=== PATIENT | male | born 1930 | race Caucasian/White ===

== ENCOUNTER 2019-10-06 16:30 | Emergency (ER) | payer OTHER, MEDICARE ==
[2019-10-06 16:55] VITALS: BP 132/58; PULSE 60; TEMP 98.1; BMI 21.2
[2019-10-06] MEDS ORDERED: DIPHTH,PERTUSS(ACELL),TET 0.5 ML DISP.SYRIN IM ONE ×2 (17:18→17:19)
--- NOTE | 2019-10-06 17:34 | PDOC ---
Documentation entered by Juliane Jon SCRIBE, acting as scribe for Tushar Lincoln MD. Tushar Lincoln MD: This documentation has been prepared by the candaceibeMarii Maria, SCRIBE, under my direction and personally reviewed by me in its entirety. I confirm that the documentation accurately reflects all work, treatment, procedures, and medical decision making performed by me. History of Present Illness - General Chief Complaint: Wound Stated Complaint: WOUND - History of Present Illness Initial Comments: 10/06/19 17:17 The patient is an 89 year old male with a significant past medical history of hypotension who presents to the emergency department with a wound to his left arm. As per patient, he reports tripping going up the stairs, 2 days ago and landed on his left arm. Denies LOC. As per patients she reports he falls constantly secondary due to his hypotension. She also reports applying bacitracin to the wound with no significant relief prompting him to the ER. Denies any head trauma. Denies any other injuries. Past History - Past Medical History Allergies/Adverse Reactions: Allergies Allergy/AdvReac Type Severity Reaction Status Date / Time No Known Allergies Allergy Verified 10/06/19 16:44 Home Medications: Ambulatory Orders Cholecalciferol (Vitamin D3) 10/06/19 Escitalopram Oxalate [Lexapro -] 20 mg PO DAILY 10/06/19 Midodrine HCl 2.5 mg PO HS 10/06/19 Midodrine HCl 5 mg PO DAILY 10/06/19 Vitamin B-12 10/06/19 Review of Systems - Review of Systems Able to Perform ROS?: Yes Comments:: 10/06/19 17:17 CONSTITUTIONAL: Absent: Fever, Chills, Diaphoresis, Generalized Weakness, Malaise, Loss of Appetite HEENT: Absent: Rhinorrhea, Nasal Congestion, Throat Pain, Throat Swelling, Difficulty Swallowing, Mouth Swelling, Ear Pain, Eye Pain, Visual Changes CARDIOVASCULAR: Absent: Chest Pain, Syncope, Palpitations, Irregular Heart Rate, Lightheadedness, Peripheral Edema RESPIRATORY: Absent: Cough, Shortness of Breath, SOB with Exertion, Orthopnea, Wheezing, Stridor, Hemoptysis GASTROINTESTINAL: Absent: Abdominal pain, Abdominal Distension, Nausea, Vomiting, Diarrhea, Constipation, Melena, Hematochezia GENITOURINARY: Absent: Dysuria, Frequency, Urgency, Hesitancy, Flank Pain, Genital Pain MUSCULOSKELETAL: Absent: Myalgia, Arthralgia, Joint Swelling, Back pain, Neck Pain SKIN:+skin tear on left arm. Absent: Rash, Itching, Pallor HEMEATOLOGIC/IMMUNOLOGIC: Absent: Easy Bleeding, Easy Bruising, Lymphadenopathy, Frequent infections ENDOCRINE: Absent: Unexplained Weight Gain, Unexplained Weight Loss, Heat Intolerance, Cold Intolerance NEUROLOGIC: Absent: Headache, Focal Weakness, Paresthesias, Vertigo, Lightheadedness, Unsteady Gait, Seizure, Mental Status Changes, Incontinence PSYCHIATRIC: Absent: Anxiety, Depression *Physical Exam - Physical Exam 10/06/19 17:32 GENERAL: The patient is awake, alert, and fully oriented, in no acute distress. Elderly gentleman, calm and cooperative. HEAD: Normal with no signs of trauma. Patient denies hitting his head when he fell. EYES: Pupils equal, round and reactive to light, extraocular movements intact, sclera anicteric, conjunctiva clear. EXTREMITIES: The left forearm over the dorsal aspect has a 4 x 5 cm area of skin tear. The skin is covering half of the wound. There is no sign of infection. There is no erythema and no discharge. The open area is pink and granulating with trace of bleeding, not significant. Wound care performed. NEUROLOGICAL: Normal speech, normal gait, however slow. PSYCH: Normal mood, normal affect. SKIN: Warm, Dry, normal turgor, no rashes or lesions noted other than the left forearm laceration noted above. Medical Decision Making - Medical Decision Making 10/06/19 17:11 89-year-old man with a history of orthostatic hypotension maintained on midodrine. He has frequent falls secondary to low blood pressure. He tripped and fell 2 days ago and got a skin tear on his left forearm, approximately 4 x 5 cm. He comes in now because the skin is not covering the entire wound. On examination, there is a superficial skin tear with the skin flap covering half of the wound. There are no signs of infection. There is pink granulating tissue with no erythema and no discharge. There is trace of bleeding, not significant. Impression: Skin tear Plan: Wound cleansed with saline irrigation. Bacitracin ointment applied and dry clean sterile dressing applied. Patient advised to follow-up at the wound care clinic at [facility] in [place]. He states he will follow-up with their this week. Discharge - Discharge Information Problems reviewed: Yes Clinical Impression/Diagnosis: Forearm laceration Qualifiers: Encounter type: initial encounter Laterality: left Qualified Code(s): S51.812A - Laceration without foreign body of left forearm, initial encounter Condition: Stable Disposition: HOME - Admission No - Follow up/Referral Referrals: Jaxon Kerns DO [Primary Care Provider] - - Patient Discharge Instructions Additional Instructions: Today you were evaluated for an open wound on the forearm. You are advised to care for the wound daily. 1) remove the dressing 2) wash the wound with soap and water gently under running water 3) rinse the wound with water from the tap 4) apply a thin layer of bacitracin to the open area with a Q-tip 5) apply a clean gauze dressing and then wrapped the wound 6) you should do this daily to clean the area and reapply bacitracin and a dressing 7) you should follow-up in 2 or 3 days at the wound clinic at [facility] on [facility] in [place] 8) call the wound clinic on Monday morning after 9 AM to schedule your appointment this week, ask to see Dr. Galvez on Monday Wound clinic [phone] If there are any signs of infection such as fever, swelling, redness, or drainage of pus, return to the emergency department immediately. - Post Discharge Activity
== END 2019-10-06 17:29 | disposition home or self-care (01) ==
LOC: FER 16:30
PROC: 3E0234Z Introduction of Serum, Toxoid and Vaccine into Muscle, Percutaneous Approach (ICD-10-PCS; principal; 2019-10-06)
DX: S51.812A Laceration without foreign body of left forearm, initial encounter (principal); I95.1 Orthostatic hypotension
CPT/HCPCS: 90715; 99282-25

== ENCOUNTER 2021-02-20 21:18 | Inpatient (IN) | payer OTHER, MEDICARE ==
[2021-02-20] MEDS ORDERED: AMOX TR/POT CLAV 875MG/125MG TABLETS (FP) PO ONE (23:42)
[2021-02-20] MEDS ORDERED: AMOX TR/POT CLAV 875MG/125MG TABLETS (FP) ONE (23:46)
[2021-02-21] MEDS ORDERED: FOLIC ACID INJECTION - 1 MG, THIAMINE HCL 100 MG, MULTIVIT INJECTION ADULT 10 ML in SOD... IVPB ONE (01:56)
[2021-02-21] MEDS ORDERED: THIAMINE HCL 200 MG/2 ML VIAL ONE (02:02)
[2021-02-21] MEDS ORDERED: MULTIVIT INJ. ADULT COMBO WITH VIT K 1 COMBO 10 ML VIAL IV ONE (02:04)
[2021-02-21] MEDS ORDERED: LIDOCAINE HCL 2% JELLY 10 ML CARTRIDGE UR ONE (02:52)
[2021-02-21] MEDS ORDERED: ACETAMINOPHEN 1000 MG/100 ML VIAL (NON FORMULARY) IVPB ONE (03:02)
[2021-02-21] MEDS ORDERED: LIDOCAINE HCL 2% JELLY (5 ML/TUBE) ONE (03:02)
[2021-02-21 03:11] LABS: BASO % 0.6 % (0-2.0); EOS % 0.8 % (0-4.5); HEMATOCRIT 35.8 % (35.4-49); LYMPH % 9.1 % (8-40); MCH 29.1 pg (25.7-33.7); MCHC 33.5 g/dl (32.0-35.9); MEAN CELL VOLUME 86.9 fl (80-96); MEAN PLT VOLUME 9.6 fl (7.5-11.1); MONO % 6.1 % (3.8-10.2); NEUT % 83.4 % (42.8-82.8); PLATELET COUNT 140 10^3/uL (134-434); RBC 4.12 M/mm3 (4.00-5.60); RDW 13.1 % (11.9-15.9); WHITE BLOOD COUNT 8.5 K/mm3 (4.0-10.0)
[2021-02-21] MEDS ORDERED: ACETAMINOPHEN INJECTION 100 ML IVPB ONE (03:19)
[2021-02-21 03:40] LABS: CALCIUM 8.5 mg/dL (8.5-10.1)
[2021-02-21 03:41] LABS: ALBUMIN 3.7 g/dl (3.4-5.0); BLOOD UREA NITROGEN 29.8 mg/dL (7-18); MAGNESIUM 2.3 mg/dL (1.8-2.4)
[2021-02-21 03:44] LABS: CREATININE 1.3 mg/dL (0.55-1.3); PHOSPHOROUS 2.9 mg/dL (2.5-4.9)
[2021-02-21 03:46] LABS: BILIRUBIN,TOTAL 0.9 mg/dL (0.2-1); TOT PROT 7.1 g/dl (6.4-8.2)
[2021-02-21 08:51] LABS: EPITHELIAL CELLS RARE /hpf; TRIPLE PHOSPHATE CRYSTAL MODERATE /hpf (NONE SEEN)
[2021-02-21 09:33] LABS: INR 1.1 (0.82-1.09); PROTHROMBIN TIME (PATIENT) 12.2 SEC (10.2-13.0)
[2021-02-21] MEDS ORDERED: AMOX TR/POT CLAV 875MG/125MG TABLETS (FP) PO SCH (10:00)
[2021-02-21] MEDS ORDERED: ACETAMINOPHEN 325 MG TABLET (FP) PO PRN (11:20)
[2021-02-21] MEDS: SODIUM CHLORIDE 1,000 ML IV SCH (11:30)
[2021-02-21] MEDS ORDERED: cefTRIAXone SODIUM 1 GM VIAL ONE (11:48)
[2021-02-21] MEDS ORDERED: DEXTROSE 5%-WATER - 50 ML IVPB ONE (11:49)
[2021-02-21] MEDS: ESCITALOPRAM OXALATE 20 MG TABLET PO SCH (11:55)
[2021-02-21] MEDS: MIDODRINE HCL 2.5 MG TABLET PO SCH (11:55)
[2021-02-21] MEDS: CEFTRIAXONE 1 GM in DEXTROSE 5%-WATER - 50 ML IVPB SCH (11:56)
[2021-02-21 12:15] VITALS: BMI 20.9
[2021-02-21] MEDS ORDERED: MIDODRINE HCL 2.5 MG TABLET PO SCH (18:00)
[2021-02-22 08:18] LABS: BASO % 0.7 % (0-2.0); CREATININE 1.1 mg/dl (0.55-1.3); EOS % 1.7 % (0-4.5); HEMATOCRIT 31.4 % (35.4-49); HEMOGLOBIN 10.8 GM/dl (11.7-16.9); LYMPH % 11.8 % (8-40); MCH 30.2 pg (25.7-33.7); MCHC 34.6 g/dl (32.0-35.9); MEAN CELL VOLUME 87.2 fl (80-96); MEAN PLT VOLUME 9.5 fl (7.5-11.1); MONO % 6.6 % (3.8-10.2); NEUT % 79.2 % (42.8-82.8); PLATELET COUNT 118 10^3/uL (134-434); RDW 12.3 % (11.9-15.9); WHITE BLOOD COUNT 6.9 K/mm3 (4.0-10.8)
[2021-02-22] MEDS ORDERED: cefTRIAXone SODIUM 1 GM VIAL ONE (09:35)
[2021-02-22] MEDS ORDERED: DEXTROSE 5%-WATER - 50 ML IVPB ONE (09:36)
[2021-02-22] MEDS: CEFTRIAXONE 1 GM in DEXTROSE 5%-WATER - 50 ML IVPB SCH (09:38)
[2021-02-22] MEDS: ESCITALOPRAM OXALATE 20 MG TABLET PO SCH (09:38)
[2021-02-22] MEDS: MIDODRINE HCL 2.5 MG TABLET PO SCH ×2 (09:39→17:25)
[2021-02-22 15:02] LABS: ALBUMIN 3.8 g/dl (3.4-5.0); ALK PHOS 49 U/L (45-117); ANION GAP 12 MMOL/L (8-16); BILIRUBIN,TOTAL 1.3 mg/dl (0.2-1); CALCIUM 8.3 mg/dl (8.5-10); CHLORIDE 102 mmol/L (98-107); CO2 24 mmol/L (21-32); CREATININE 1.1 mg/dl (0.55-1.3); GLUCOSE,RANDOM 93 mg/dl (74-106); SGOT/AST 21 U/L (15-37); SGPT/ALT 13 U/L (13-61); SODIUM 138 mmol/L (136-145); TOT PROT 6.8 g/dl (6.4-8.2)
[2021-02-22] MEDS: SODIUM CHLORIDE 1,000 ML IV SCH (16:29)
[2021-02-22] MEDS: HEPARIN NA (PORCINE) 5,000 UNITS/ML 1ML VIAL SQ SCH (21:11)
[2021-02-23] MEDS: HEPARIN NA (PORCINE) 5,000 UNITS/ML 1ML VIAL SQ SCH ×3 (06:11→21:12)
[2021-02-23] MEDS: ESCITALOPRAM OXALATE 20 MG TABLET PO SCH (10:20)
[2021-02-23] MEDS: MIDODRINE HCL 2.5 MG TABLET PO SCH ×2 (10:20→17:57)
[2021-02-24] MEDS: HEPARIN NA (PORCINE) 5,000 UNITS/ML 1ML VIAL SQ SCH ×3 (05:59→21:06)
[2021-02-24] MEDS ORDERED: LOCK ITEM NR ONE (10:50)
[2021-02-24] MEDS: ESCITALOPRAM OXALATE 20 MG TABLET PO SCH (12:15)
[2021-02-24] MEDS: MIDODRINE HCL 2.5 MG TABLET PO SCH (17:51)
[2021-02-25] MEDS: HEPARIN NA (PORCINE) 5,000 UNITS/ML 1ML VIAL SQ SCH ×3 (06:23→21:52)
[2021-02-25] MEDS: ESCITALOPRAM OXALATE 20 MG TABLET PO SCH (11:45)
[2021-02-25] MEDS ORDERED: LIDOCAINE HCL 2% JELLY 10 ML CARTRIDGE ONE (14:37)
[2021-02-25] MEDS ORDERED: ONDANSETRON *ODT* 4 MG TABLET ONE (14:50)
[2021-02-25] MEDS: ONDANSETRON *ODT* 4 MG TABLET SL ONE ×2 (14:54→17:28)
[2021-02-25] MEDS ORDERED: LIDOCAINE HCL 1%, 10 MG/ML (20ML VIAL) ONE (14:56)
[2021-02-25] MEDS: MIDODRINE HCL 2.5 MG TABLET PO SCH (18:01)
[2021-02-26] MEDS: HEPARIN NA (PORCINE) 5,000 UNITS/ML 1ML VIAL SQ SCH (06:38)
[2021-02-26] MEDS: ESCITALOPRAM OXALATE 20 MG TABLET PO SCH (10:54)
[2021-02-26 14:20] VITALS: BP 146/54; PULSE 63; TEMP 98.5
== END 2021-02-26 14:00 | DRG 74 ==
LOC: SUATTDRO 21:18 → FER 21:18 → FM/S 02-21 09:46 → FER 02-21 10:02 → FM/S 02-21 10:04
PROVIDERS: ADMIT Internal Medicine; ATTEND Nurse Practitioner Acute Care
PROC: 0T9B40Z Drainage of Bladder with Drainage Device, Percutaneous Endoscopic Approach (ICD-10-PCS; principal; 2021-02-25 15:37)
DX: G90.9 Disorder of the autonomic nervous system, unspecified (principal); I95.1 Orthostatic hypotension; R33.9 Retention of urine, unspecified; S01.21XA Laceration without foreign body of nose, initial encounter; F32.9 Major depressive disorder, single episode, unspecified; S02.2XXA Fracture of nasal bones, initial encounter for closed fracture; N31.9 Neuromuscular dysfunction of bladder, unspecified; W19.XXXA Unspecified fall, initial encounter; Y93.9 Activity, unspecified; Y92.89 Other specified places as the place of occurrence of the external cause; Y99.9 Unspecified external cause status; E78.2 Mixed hyperlipidemia
CPT/HCPCS: 36415; 70450-TC; 70486-TC; 71045-TC-FY; 73110-TC-RT-FY; 80048; 80053; 81003; 81015; 83735; 84100; 84484; 85025; 85610; 85730; 87086; 93005; 93306-TC; 97116-GP; 97162-GP; 99285-25; C9803; J0131; J1644; Q0162; U0003; U0005